=== PATIENT | female | born 1995 | race Caucasian/White ===

== ENCOUNTER → 2023-08-06 10:33 | Outpatient (REF) | payer BC, SELFPAY ==
[2023-08-06 12:10] LABS: % Basophils 0.7 % (0-2); % Eosinophils 4.2 % (0-6); % Lymphocytes 36.9 % (20.5-51.1); % Neutrophils 51.2 % (42.2-75.2); Absolute Eosinophils 0.2 10^3/uL (0-0.7); Absolute Lymphocytes 1.6 10^3/uL (1.2-3.4); Absolute Monocytes 0.3 10^3/uL (0.1-0.6); Absolute Neutrophils 2.2 10^3/uL (1.4-6.5); Hematocrit 32.5 % (37.0-47.0); Hemoglobin 9.8 g/dL (12.0-16.0); Mean Corp Hgb Conc. 30.2 g/dL (33.0-37.0); Mean Corpuscular Volume 79.7 fL (81.0-99.0); Mean Platelet Volume 11.3 fL (7.4-10.4); Nucleated Red Blood Cells % 0 %; Platelet Count 288 10^3/uL (130-400); Red Blood Cell Count 4.08 10^6/uL (4.20-5.40); Red Cell Dist. Width 15.1 % (11.5-14.5); White Blood Cell Count 4.3 10^3/uL (4.8-10.8)
[2023-08-06 12:35] LABS: ALT (SGPT) 46 U/L (0-35); AST (SGOT) 31 U/L (14-36); Albumin 4.9 g/dl (3.5-5.0); Alkaline Phosphatase 44 U/L (38-126); Blood Urea Nitrogen 7 mg/dl (7-17); Calcium 9.6 mg/dl (8.4-10.2); Carbon Dioxide 23 mmol/L (22-30); Chloride 102 mmol/L (98-107); Glucose 85 mg/dl (70-99); HDL Cholesterol 76 mg/dl; Iron 54 ug/dl (37-170); LDL Cholesterol, Calculated 90 mg/dl; Potassium 4.4 mmol/L (3.5-5.1); Sodium 136 mmol/L (135-145); Total Bilirubin 0.6 mg/dl (0.2-1.3); Total Cholesterol 182 mg/dl (50-199); Total Protein 7.8 g/dl (6.3-8.2); Triglyceride 81 mg/dl (10-149); Very Low Density Lipoprotein 16 mg/dl (0-30); eGFR > 60.00
[2023-08-06 12:38] LABS: C-Reactive Protein < 5.00 mg/L (0.0-10.00)
[2023-08-06 13:10] LABS: TSH Reflex To Free T4 1.75 uIU/ml (0.47-4.68)
[2023-08-06 14:13] LABS: Hepatitis B Surface Antigen Negative (Negative)
[2023-08-06 14:19] LABS: Ferritin 5.4 ng/ml (6.24-137)
[2023-08-06 14:31] LABS: Hepatitis C Antibody Negative (Negative)
[2023-08-06 14:33] LABS: Vitamin B12 208 pg/ml (239-931)
[2023-08-06 15:57] LABS: Lyme Antibody Screen, EIA Negative (Negative)
[2023-08-07 20:13] LABS: ANA, IgG Reflex to HEp-2 None Detected (None Detected)
== END ==
LOC: REG 10:33
PROVIDERS: ATTENDING PHYSICIAN Family Medicine
DX: Z00.00 Encounter for general adult medical examination without abnormal findings (principal); R51.9 Headache, unspecified; M54.2 Cervicalgia; R79.89 Other specified abnormal findings of blood chemistry; D64.9 Anemia, unspecified
CPT/HCPCS: 36415; 80053; 80061; 82607; 82728; 83540; 84443; 85025; 86038; 86140; 86618; 86803; 87340

== ENCOUNTER 2024-01-08 14:11 | Emergency (ER) | payer BC, SELFPAY ==
[2024-01-08 14:18] VITALS: BP 125/77
[2024-01-08 14:47] LABS: % Basophils 0.7 % (0-2); % Eosinophils 4.3 % (0-6); % Immature Granulocytes 0.2 % (0-0.5); % Monocytes 7.5 % (1.7-9.3); % Neutrophils 57.3 % (42.2-75.2); Absolute Eosinophils 0.2 10^3/uL (0-0.7); Absolute Lymphocytes 1.2 10^3/uL (1.2-3.4); Absolute Monocytes 0.3 10^3/uL (0.1-0.6); Absolute Neutrophils 2.4 10^3/uL (1.4-6.5); Hematocrit 32.1 % (37.0-47.0); Mean Corp Hgb Conc. 31.2 g/dL (33.0-37.0); Mean Corpuscular Hgb 24.9 pg (27.0-31.0); Mean Platelet Volume 10.4 fL (7.4-10.4); Nucleated Red Blood Cells % 0 %; Platelet Count 334 10^3/uL (130-400); Red Blood Cell Count 4.01 10^6/uL (4.20-5.40); White Blood Cell Count 4.1 10^3/uL (4.8-10.8)
[2024-01-08 14:53] LABS: ALT (SGPT) 54 U/L (0-35); AST (SGOT) 39 U/L (14-36); Albumin 4.9 g/dl (3.5-5.0); Alkaline Phosphatase 51 U/L (38-126); Blood Urea Nitrogen 5 mg/dl (7-17); Calcium 10.1 mg/dl (8.4-10.2); Carbon Dioxide 24 mmol/L (22-30); Chloride 102 mmol/L (98-107); Glucose 98 mg/dl (70-99); Potassium 3.9 mmol/L (3.5-5.1); Sodium 139 mmol/L (135-145); Total Bilirubin 0.5 mg/dl (0.2-1.3); eGFR > 60.00
[2024-01-08 15:05] LABS: Troponin I < 0.012 ng/ml
[2024-01-08 15:24] LABS: TSH 2.57 uIU/ml (0.47-4.68)
--- NOTE | 2024-01-08 16:06 | ED.GENMED ---
History of Present Illness
General
Chief Complaint: Chest Pain
Source: patient
Exam Limitations: none
Time Seen by Provider: 01/08/24 15:46
Nursing documentation reviewed up to this point in time: agreed with
History of Present Illness
History of Present Illness:
28-year-old female with no significant past medical history presents stating for the past 2 months she's had intermittent sharp chest pains getting more frequent over past 2 weeks. also palpitations at times.
Also for past 5 years, shortly after R wisdom teeth removed, has had right jaw and neck pain down to her shoulder with what she thinks are swollen lymph nodes. Denies fever. Is concerned that there is a 'hidden infection somewhere.'
Has taken nothing for the pains as she prefers 'natural' remedies but has taken nothing.
Past History
Past History
ED Past Medical History: None
ED Past Surgical History: None
Social History
Tobacco: Non-smoker
Personal: Single
Living: with family
Review of Systems
Review of Systems
Allergies reviewed?: Yes
All Other Systems: ROS reviewed and negative except as documented in HPI and ROS
Constitutional: Reports fatigue; Denies fever or chills
EENT: Reports other (feels tender swollen nodes right side neck and jaw intermittently); Denies sore throat
Cardiac: Reports chest pain and palpitations; Denies diaphoresis
ABD/GI: Denies abdominal pain, nausea, vomiting, diarrhea or anorexia
: Denies dysuria, frequency, difficulty voiding or urgency
Musculoskeletal: Reports no symptoms
Skin: Reports no symptoms
Neurological: Reports no symptoms
Phy Exam
Physical Exam
Physical Exam:
GENERAL: No acute distress. A&Ox3.
CONSTITUTIONAL: Afebrile.
EYES: PERRL, conjunctivae normal
Neck: Supple, no palpable lymphadenopathy. Point tender area just behind the right ear, there is a tender minute less than 5 mm firm area consistent with a cyst.
ENMT: moist mucus membranes, Pharynx nl, TMs normal
RESPIRATORY: Regular respirations, nonlabored, lungs clear.
CARDIOVASCULAR: Regular rate and rhythm, faint murmur, no rubs.
GI: Soft, nontender, normal BS
MUSCULOSKELETAL: Moves with ease. Well perfused.
SKIN: Warm, dry, pink
PSYCH: Normal mood and affect. Well kept, interactive and appropriate
NEUROLOGIC: Awake, alert and oriented. No focal neurological deficits
Scores
Heart Score for Chest Pain Patients
STEMI patient?: Not applicable
Course
Orders/Labs/Results
Orders:
Orders
01/08/24 14:13
Electrocardiogram (*1) Urgent
Reason for Study: Chest Pain
EKG- Treatment ONCE
01/08/24 14:30
Complete Blood Count/With Diff Urgent
Comprehensive Metabolic Panel Urgent
TSH Urgent
Troponin I Urgent
01/08/24 16:30
CR Chest - 2 Views Urgent
Comment:
Reason For Exam: chronic mid chest pain
Abnormal Lab Results
01/08/24
14:30
WBC 4.1 L 10^3/uL
(4.8-10.8)
RBC 4.01 L 10^6/uL
(4.20-5.40)
Hgb 10.0 L g/dL
(12.0-16.0)
Hct 32.1 L %
(37.0-47.0)
MCV 80.0 L fL
(81.0-99.0)
MCH 24.9 L pg
(27.0-31.0)
MCHC 31.2 L g/dL
(33.0-37.0)
RDW 15.0 H %
(11.5-14.5)
BUN 5 L mg/dl
(7-17)
AST 39 H U/L
(14-36)
ALT 54 H U/L
(0-35)
01/08/24 14:30
01/08/24 14:30
Vital Signs
Initial and Last Documented VS:
Initial Vital Signs
Temp Pulse Resp BP Pulse Ox
98.2 F 100 20 125/77 100
01/08/24 14:18 01/08/24 14:18 01/08/24 14:18 01/08/24 14:18 01/08/24 14:18
Last Documented Vital Signs
Temp Pulse Resp BP Pulse Ox
98.3 F 72 18 132/72 100
01/08/24 17:40 01/08/24 17:40 01/08/24 17:40 01/08/24 17:40 01/08/24 17:40
MDM/Problems Addressed
Differential Diagnosis Includes:
costochondritis, musculoskeletal chest pain,
Hyperthyroid, PVCs
MDM/Problems Addressed:
28-year-old female with no significant past medical history presents stating for the past 2 months she's had intermittent sharp chest pains getting more frequent over past 2 weeks. also palpitations at times.
Also for past 5 years, shortly after R wisdom teeth removed, has had right jaw and neck pain down to her shoulder with what she thinks are swollen lymph nodes. Denies fever. Is concerned that there is a 'hidden infection somewhere.'
Has taken nothing for the pains as she prefers 'natural' remedies but has taken nothing.
Afebrile, NAD
EKG NSR
4:30 p.m.
CBC consistent with her chronic anemia
CMP: mild elevation AST/ALT pt states is chronic, otherwise normal
TSH normal.
Troponin normal
No risk for PE, exam benign
5:30 p.m.
CXR NAD
Slight audible murmur left apex may be MVP, pt notified
Workup here neg. Pt reassured
Referred to Endocrinology for her concern that 'something's just not right' perhaps needs autoimmune workup.
She will f/u with PCP as needed
*Critical Care Note
Total Time (30-74mins, 75-104mins- exclusive of procedures): Not Applicable
ED Attending Note
-
Portions of this chart may have been created with voice recognition software.� Occasional wrong word or��sound alike� substitutions may have occurred due to the inherent limitations of voice recognition software.
Discharge Plan
Departure
Patient Disposition: Home (Routine Discharge)
Date of Disposition: 01/08/24
Time of Disposition: 17:21
Patient with high blood pressure during this ER visit?: No
Condition: Good
Discharge Problem:
Atypical chest pain
Instructions: Chest Pain That Is Not Caused by the Heart (DC), Heart Palpitations
Prescriptions:
No Action
prednisone 50 MG tablet
50 mg PO DAILY Qty: 3 0RF
Referrals:
Xiao Valentine MD [Consulting Staff] - Next open appointment
oRsendo Manzano DO [Active] - Next open appointment
Activity Restrictions/Additional Instructions:
As we discussed, nothing worrisome in your workup here today.
No sign of infection
I have provided you the name of an Marine Steamfitter to follow up with in case she feels further workup is necessary.
You have a mild heart murmur, nothing worrisome. Have your PCP take a listen.
I have provided you with the name of a Structural Steel Ironworker if needed. Nothing worrisome or needed immediately intervention.
Interventions
Interventions:
*Risk Screen - Suicide Last Done: 01/08/24 18:14
*General Assessment Last Done: 01/08/24 18:14
*Neglect/Abuse Screening Last Done: 01/08/24 18:14
*Nursing Disposition Last Done: 01/08/24 18:14
ED- Cardiac Assessment Last Done: 01/08/24 17:41
Discharge Date and Time
Discharge Date/Time: 01/08/24 18:16
Print Language: CYPRIOT
[2024-01-08 17:40] VITALS: BP 132/72
== END 2024-01-08 18:16 | disposition home or self-care (01) ==
LOC: EMR 14:11
PROVIDERS: EMERGENCY PHYSICIAN Emergency Medicine; FAMILY PHYSICIAN Family Medicine
DX: R07.89 Other chest pain (principal); D64.9 Anemia, unspecified
CPT/HCPCS: 99283; 71046; 80053; 84443; 84484; 85025; 93005

== ENCOUNTER → 2024-03-16 09:24 | Outpatient (REF) | payer BC, SELFPAY | LOC: RCS 09:24 | PROVIDERS: ATTENDING PHYSICIAN Family Medicine | DX: R00.2 Palpitations (principal) | CPT/HCPCS: 93225; 93226 ==

== ENCOUNTER → 2024-07-21 14:54 | Outpatient (REF) | payer BC, SELFPAY | LOC: RCS 14:54 | PROVIDERS: ATTENDING PHYSICIAN Physician Assistant | DX: R01.1 Cardiac murmur, unspecified (principal) | CPT/HCPCS: 93306 ==

== ENCOUNTER → 2025-01-12 09:27 | Outpatient (REF) | payer BC, SELFPAY ==
[2025-01-12 10:50] LABS: Hematocrit 30.2 % (37.0-47.0); Hemoglobin 8.9 g/dL (12.0-16.0); Mean Corp Hgb Conc. 29.5 g/dL (33.0-37.0); Mean Corpuscular Volume 77.0 fL (81.0-99.0); Nucleated Red Blood Cells % 0 %; Platelet Count 313 10^3/uL (130-400); Red Cell Dist. Width 16.2 % (11.5-14.5)
[2025-01-12 11:11] LABS: ALT (SGPT) 58 U/L (0-35); AST (SGOT) 31 U/L (14-36); Albumin 4.8 g/dl (3.5-5.0); Alkaline Phosphatase 43 U/L (38-126); Blood Urea Nitrogen 7 mg/dl (7-17); Calcium 9.8 mg/dl (8.4-10.2); Carbon Dioxide 26 mmol/L (22-30); Chloride 104 mmol/L (98-107); Glucose 79 mg/dl (70-99); HDL Cholesterol 61 mg/dl; Iron 27 ug/dl (37-170); LDL Cholesterol, Calculated 90 mg/dl; Sodium 135 mmol/L (135-145); Total Protein 8.1 g/dl (6.3-8.2); Very Low Density Lipoprotein 12 mg/dl (0-30); eGFR > 60.00
[2025-01-12 11:21] LABS: Total Iron Binding Capacity 480 ug/dl (265-497)
[2025-01-12 11:31] LABS: Vitamin D, 25-OH*** 49.8 ng/mL (30-80)
[2025-01-12 11:47] LABS: Potassium 4.2 mmol/L (3.5-5.1)
[2025-01-12 11:49] LABS: Ferritin 4.7 ng/ml (6.24-137)
[2025-01-12 12:21] LABS: Folate 6.7 ng/ml (2.76-20); Vitamin B12 240 pg/ml (239-931)
== END ==
LOC: RCS 09:27
PROVIDERS: ATTENDING PHYSICIAN Physician Assistant
DX: R07.89 Other chest pain (principal); D64.9 Anemia, unspecified; R79.89 Other specified abnormal findings of blood chemistry; Z13.220 Encounter for screening for lipoid disorders; E53.8 Deficiency of other specified B group vitamins; E55.9 Vitamin D deficiency, unspecified; L30.9 Dermatitis, unspecified; R21 Rash and other nonspecific skin eruption
CPT/HCPCS: 36415; 80053; 80061; 82306; 82607; 82728; 82746; 83540; 83550; 84443; 85025; 93017